=== PATIENT | female | born 1995 | race Caucasian/White ===

== ENCOUNTER 2019-08-09 14:34 | Emergency (ER) | payer BC, SELFPAY ==
--- NOTE | 2019-08-09 14:42 | ED.GENADULT ---
HPI - General Adult General Chief complaint: Skin/Abscess/Foreign Body Stated complaint: INFECTED AREA Time Seen by Provider: 08/09/19 14:43 Source: patient Mode of arrival: ambulatory Limitations: no limitations History of Present Illness HPI narrative: A 23 y/o female, who is a nonsmoker/nondrinker, presents to with c/o a rash on her buttocks since (2 days ago). Pt states that she noticed a tran on the area yesterday which popped on its own. Pt noted yellow drainage. She reports pain around the area that she rates as a 3/10 in severity. Pt notes that she had similar symptoms in the past from a hot tub. Pt was started on Macrobid on (2 days ago) for a UTI. Onset (ago): day(s) (2) Location: buttocks Related Data Home Medications Medication Instructions Recorded Confirmed levonorgestrel-ethinyl estrad 1 tablet PO DAILY 08/09/19 08/09/19 [Lessina] nitrofurantoin monohyd/m-cryst 100 mg PO DAILY 08/09/19 08/09/19 Allergies Allergy/AdvReac Type Severity Reaction Status Date / Time No Known Allergies Allergy Unverified 08/09/19 14:43 Review of Systems Review of Systems: Narrative: General/Constitutional: Denies: weight loss,fever Eyes: Denies: Redness,discharge Ears/Nose/Throat: Denies: Epistaxis,ear discharge Respiratory: Denies: Hemoptysis Gastrointestinal: Denies: Vomiting, Bleeding-rectal Skin: Reports: rash on buttocks with pain, yellow drainage Neurologic: Denies: Focal Weakness,Sz Hematologic: Denies: Petechiae/Purpura Psychiatric: Denies: Suicidal ideation All systems reviewed & are unremarkable except as noted in HPI and below PMFSH Family History Family History Other Diabetes mellitus Family history of pancreatic cancer Family history of type 2 diabetes mellitus Social History Social History Smoking status: Never smoker Alcohol intake: current Comments No significant PMHx. PCP. Dr. Rene At time of signature, agree with nursing past medical, surgical, social and family history. There is no relevant family history pertinent to the presenting complaint Exam Narrative: Exam Narrative: General Appearance: Well-nourished, Cooperative Head: Normocephalic Eye: PERRLA, Conjunctiva clear Ear: External ear normal Nose: Normal nose, Nare clear Mouth/Throat: Normal appearing Neck Exam: Supple Respiratory: Airway patent, No respiratory distress Musculoskeletal: Moves all extremities, Non tender; scattered follicular changes on thighs bilaterally Skin: Warm, Dry (small, isolated macular papular skin eruption of right gluteal Neurological: A&O x3 Psychiatric: Normal mood, Normal affect Course Vital Signs Vital signs: Vital Signs Temperature 98.1 F 08/09/19 14:44 Pulse Rate 101 H 08/09/19 14:44 Respiratory Rate 18 08/09/19 14:44 Blood Pressure 133/80 08/09/19 14:44 Pulse Oximetry 100 08/09/19 14:44 Temperature 98.1 F 08/09/19 14:44 Pulse Rate 101 H 08/09/19 14:44 Respiratory Rate 18 08/09/19 14:44 Blood Pressure 133/80 08/09/19 14:44 Pulse Oximetry 100 08/09/19 14:44 Medical Decision Making Vital Signs Vital Signs: Vital Signs Temperature 98.1 F 08/09/19 14:44 Pulse Rate 101 H 08/09/19 14:44 Respiratory Rate 18 08/09/19 14:44 Blood Pressure 133/80 08/09/19 14:44 Pulse Oximetry 100 08/09/19 14:44 Temperature 98.1 F 08/09/19 14:44 Pulse Rate 101 H 08/09/19 14:44 Respiratory Rate 18 08/09/19 14:44 Blood Pressure 133/80 08/09/19 14:44 Pulse Oximetry 100 08/09/19 14:44 Discharge Plan Discharge Clinical Impression: Folliculitis Patient Disposition: Home, Self-Care Condition: Stable Instructions: Antibiotic Form, Folliculitis (ED) Prescriptions: New clindamycin HCl 300 mg capsule 300 mg PO Q6H Qty: 15 RF: 0 mupirocin 2 % ointment 1 applic TOPICAL TI
[2019-08-09 14:44] VITALS: BP 133/80; PULSE 101; RESP 18; TEMP 36.7; O2SAT 100
== END 2019-08-09 15:01 | disposition home or self-care (01) ==
PROVIDERS: Emergency Provider Emergency Medicine
DX: L73.9 Follicular disorder, unspecified (principal)
CPT/HCPCS: 99213; G0463

== ENCOUNTER 2019-09-26 16:55 | Emergency (ER) | payer BC, MEDICAID, SELFPAY ==
[2019-09-26 17:00] VITALS: BP 127/75; PULSE 94; RESP 16; TEMP 37.1; O2SAT 99
--- NOTE | 2019-09-26 17:00 | ED.GENADULT ---
HPI - General Adult General Chief complaint: Upper Respiratory Infection Stated complaint: sore throat Time Seen by Provider: 09/26/19 17:00 Source: patient Mode of arrival: ambulatory Limitations: no limitations History of Present Illness HPI narrative: 23-year-old female patient presents to the [facility] with complaints of sore throat, enlarged tonsils and a rash. Patient states that her sore throat started approximately a week ago and states that the rash just started yesterday. Denies any itchiness to the rash. Denies any fevers that she is aware of. Denies any chest pain or shortness of breath or coughing. Patient states that her whole household did have strep that about a month ago. Patient denies any abdominal pain, nausea, vomiting or diarrhea. Patient denies any or breast-feeding at this time. Related Data Home Medications Medication Instructions Recorded Confirmed levonorgestrel-ethinyl estrad 1 tablet PO DAILY 08/09/19 09/26/19 [Lessina] Allergies Allergy/AdvReac Type Severity Reaction Status Date / Time No Known Allergies Allergy Verified 09/26/19 17:05 Review of Systems Review of Systems: Narrative: CONSTITUTIONAL: Denies fever, chills, or sweats. EYES: Denies visual changes, redness, or discharge. ENT: Denies rhinorrhea, congestion, positive sore throat, or otalgia. CARDIOVASCULAR: Denies chest pain, palpitations, or edema. RESPIRATORY: Denies cough or dyspnea. GASTROINTESTINAL: Denies abdominal pain, nausea, vomiting, or diarrhea. GENITOURINARY: Denies dysuria or hematuria. SKIN: Positive rash, denies itching. MUSCULOSKELETAL: Denies back pain, joint pain, or myalgia. NEUROLOGIC: Denies headache, numbness, or weakness. PSYCHIATRIC: Denies anxiety or depression. [facility] Family History Family History Other Diabetes mellitus Family history of pancreatic cancer Family history of type 2 diabetes mellitus Social History Social History Smoking status: Never smoker Alcohol intake: current Comments At the time of my signature I agree with nursing past medical history, surgical, social, and family history. There is no relevant family history pertinent to the presenting complaint. Exam Narrative: Exam Narrative: GENERAL: Well-appearing, well-nourished, and in no acute distress. HEAD: Normocephalic, atraumatic. EYES: PERRLA and EOMI. ENT: Nares clear, no rhinorrhea or epistaxis. Mucous membranes moist. Posterior pharynx with erythema and 2+ tonsil enlargement on the left side. No exudates or lesions present. Bilateral TMs are clear with no erythema or foreign bodies in the canal. NECK: Supple. No lymphadenopathy CHEST: Clear to auscultation. No respiratory distress. HEART: Regular rate and rhythm. No murmur heard. Normal peripheral pulses. ABDOMEN: Soft, nontender, nondistended, normal active bowel sounds. EXTREMITIES: Normal range of motion. No edema. SKIN: Warm, dry, patient has generalized flat pinpoint rash noted noted to chest, trunk and bilateral upper extremities. NEURO: No focal deficits. Alert and oriented x3. Course Vital Signs Vital signs: Vital Signs Temperature 37.1 C 09/26/19 17:00 Pulse Rate 94 09/26/19 17:00 Respiratory Rate 16 09/26/19 17:00 Blood Pressure 127/75 09/26/19 17:00 Pulse Oximetry 99 09/26/19 17:00 Temperature 37.1 C 09/26/19 17:00 Pulse Rate 94 09/26/19 17:00 Respiratory Rate 16 09/26/19 17:00 Blood Pressure 127/75 09/26/19 17:00 Pulse Oximetry 99 09/26/19 17:00 Vital signs reviewed Medical Decision Making Differential Diagnosis Differential Diagnosis: Differential diagnosis: Viral pharyngitis, pharyngitis, group A strep, infectious mononucleosis, gonococcal pharyngitis, exudative pharyngitis, oral candidiasis. Chronic allergies, postnasal drip, GERD, abscess formation, but glottitis, retrophary
== END 2019-09-26 17:34 | disposition home or self-care (01) ==
PROVIDERS: Emergency Provider Nurse Practitioner Family
DX: R21 Rash and other nonspecific skin eruption (principal); J02.9 Acute pharyngitis, unspecified
CPT/HCPCS: 86308; 87081; 87880; 99213; G0463

== ENCOUNTER 2019-10-04 19:34 | Emergency (ER) | payer BC, MEDICAID, SELFPAY ==
[2019-10-04 19:48] VITALS: BP 148/68; PULSE 105; RESP 16; TEMP 37.1; O2SAT 100
--- NOTE | 2019-10-04 20:07 | ED.FEMALEGU ---
HPI - Female Genitourinary General Chief complaint: Urogenital-Female Stated complaint: uti symptoms, bloody urine Time Seen by Provider: 10/04/19 19:57 Source: patient Mode of arrival: ambulatory Limitations: no limitations History of Present Illness HPI Narrative: This is a 23 year old female that presents to the ER for dysuria x 3 days. Reports urgency and frequency as well. Also reports hematuria. Reports recent unprotected sex. Denies fever, abdominal pain, vomiting, or flank pain. Related Data Home Medications Medication Instructions Recorded Confirmed levonorgestrel-ethinyl estrad 1 tablet PO DAILY 08/09/19 10/04/19 [Lessina] Allergies Allergy/AdvReac Type Severity Reaction Status Date / Time No Known Allergies Allergy Verified 10/04/19 19:50 Review of Systems Review of Systems: Narrative: CONSTITUTIONAL: Denies fever GASTROINTESTINAL: Denies abdominal pain, nausea, vomiting GENITOURINARY: Reports dysuria and hematuria. MUSCULOSKELETAL: Denies back pain All systems reviewed & are unremarkable except as noted in HPI and below PMFSH Social History Social History Smoking status: Never smoker Alcohol intake: current Gender identity (if verbalized by the patient): Female Exam Narrative: Exam Narrative: GENERAL: Well-appearing, well-nourished, and in no acute distress. HEAD: Normocephalic, atraumatic. EYES: EOMI. CHEST: Clear to auscultation. No respiratory distress. No wheezes rales or rhonchi HEART: Regular rate and rhythm. No murmur heard. Normal peripheral pulses. ABDOMEN: Soft, nontender, nondistended, normal active bowel sounds. No CVA tenderness EXTREMITIES: Normal range of motion. No edema. SKIN: Warm, dry, no rash. NEURO: No focal deficits. Alert and oriented x3. PSYCH: Normal mood and affect Course Vital Signs Vital signs: Vital Signs Temperature 98.8 F 10/04/19 19:48 Pulse Rate 105 H 10/04/19 19:48 Respiratory Rate 16 10/04/19 19:48 Blood Pressure 148/68 H 10/04/19 19:48 Pulse Oximetry 100 10/04/19 19:48 Temperature 98.8 F 10/04/19 19:48 Pulse Rate 105 H 10/04/19 19:48 Respiratory Rate 16 10/04/19 19:48 Blood Pressure 148/68 H 10/04/19 19:48 Pulse Oximetry 100 10/04/19 19:48 MDM - Female Genitourinary MDM Narrative Medical decision making narrative: Patient presents to the ER for dysuria x 3 days. She is afebrile and nontoxic appearing. Denies abdominal pain or flank pain. UA with evidence of urinary tract infection. Trichomonas negative. Chlamydia and Gonorrhea sent. Will follow up for results. Would not like to be presumptively treated. Patient will be started on antibiotics. 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 Patient was given warnings to return to the ER Lab Data Labs: Lab Results 10/04/19 10/04/19 10/04/19 Range/Units 20:50 20:56 20:57 Urine Color Red H (Yellow) Urine Appearance Cloudy H (Clear) Urine pH 7.0 (5.0-9.0) Ur Specific [place] 1.003 (1.001-1.035) Urine Protein 1+ H (Negative) mg/dL Urine Glucose (UA) Negative (Negative) mg/dL Urine Ketones Negative (Negative) mg/dL Ur Blood (Man) 3+ H (Negative) Urine Nitrate Negative (Negative) Urine Bilirubin Negative (Negative) Urine Urobilinogen Negative (<2.0) mg/dL Leukocyte Esterase Rfl 3+ H (Negative) MARANDA/UL Urine RBC 11-20 H (0-2) /hpf Urine WBC >75 H /hpf Ur Squamous Epith Cells Rare (Few) /hpf Urine Bacteria 1+ H /hpf Urine Mucus Rare /lpf C.trachomatis RNA (TMA) Pending N.gonorrhoeae RNA (TMA) Pending Trichomonas Direct ID Negative (Negative) UCG Bedside Result Negative Reference Range: Negative Critical Care Time Critical Care Time Critical Care Time: No Discharge Plan Discharge Clinical Impression: Urinary tract infection Qualifiers: Urinary tract infection type: acute cy
[2019-10-04 21:11] LABS: Add Urine Microscopic? YES; Appearance Urine Cloudy (Clear); Bacteria Urine 1+ /hpf; Bilirubin Urine Negative (Negative); Blood Urine 3+ (Negative); Color Urine Red (Yellow); Glucose Urine UA Negative (Negative); Ketones Urine Negative (Negative); Leukocyte Esterase Ur 3+ LEU/UL (Negative); Mucus Urine Rare /lpf; Nitrate Urine Negative (Negative); Protein Urine 1+ mg/dL (Negative); Specific Grav Ur 1.003 (1.001-1.035); Squamous Epithelial Cell Urine Rare /hpf (Few); Urobilinogen Urine Negative mg/dL (<2.0); WBC Urine >75 /hpf
== END 2019-10-04 23:00 | disposition home or self-care (01) ==
PROVIDERS: Physician Assistant; Emergency Provider Emergency Medicine
DX: N30.01 Acute cystitis with hematuria (principal)
CPT/HCPCS: 81001; 81025; 87070; 87086; 87088; 87491; 87591; 87808; 99284

== ENCOUNTER 2020-01-21 14:13 | Emergency (ER) | payer OTHER, SELFPAY ==
[2020-01-21 14:19] VITALS: BP 111/69; PULSE 95; RESP 12; TEMP 36.6; O2SAT 100
--- NOTE | 2020-01-21 14:19 | ED.SKABFB ---
HPI - Skin/Abscess/Foreign Bdy General Chief complaint: Skin/Abscess/Foreign Body Stated complaint: HIVES Time Seen by Provider: 01/21/20 14:21 Source: patient and RN notes reviewed Mode of arrival: ambulatory Limitations: no limitations History of Present Illness HPI narrative: 24 year old female who presents to [facility] care with complaints of hives to the anterior aspects of bilateral legs for the past 2 days. Patient states that she also has a few spots of hives also on the forearms. Patient states that she was outside over the weekend for a picnic and on grass, and she also completed antibiotic of Macrobid on Sunday morning but has taken that several times in past for UTI. Patient denies any new lotions, soaps, foods or any exposure to poisonous plants. She denies any difficulty with her swallowing or any trouble with breathing. MD complaint: rash Onset (ago): day(s) (2) Tetanus up to date: yes Location: LLE and RLE Severity: moderate Quality: pruritic Relieving factors: medication Exacerbating factors: movement Context: recent antibiotic and other (outside) Associated symptoms: itching Treatments prior to arrival: Benadryl Related Data Home Medications Medication Instructions Recorded Confirmed levonorgestrel-ethinyl estrad 1 tablet PO DAILY 08/09/19 01/21/20 [Lessina] Allergies Allergy/AdvReac Type Severity Reaction Status Date / Time No Known Allergies Allergy Verified 01/21/20 14:23 Review of Systems Review of Systems: Narrative: CONSTITUTIONAL: Denies fever, chills, or sweats. EYES: Denies visual changes, redness, or discharge. ENT: Denies rhinorrhea, congestion, sore throat, or otalgia. CARDIOVASCULAR: Denies chest pain, palpitations, or edema. RESPIRATORY: Denies cough or dyspnea. GASTROINTESTINAL: Denies abdominal pain, nausea, vomiting, or diarrhea. GENITOURINARY: Denies dysuria or hematuria. itching. MUSCULOSKELETAL: Denies back pain, joint pain, or myalgia. SKIN: hive rash to anterior thighs and forearms with itching. NEUROLOGIC: Denies headache, numbness, or weakness. PSYCHIATRIC: Denies anxiety or depression. All systems reviewed & are unremarkable except as noted in HPI and below PMFSH Past Medical History Medical History (Updated 01/21/20 @ 15:10 by Maria Ines Lr NP) UTI (urinary tract infection) Surgical History Surgical History (Updated 01/21/20 @ 15:11 by Maria Ines Lr NP) History of breast augmentation Family History Family History Other Diabetes mellitus Family history of pancreatic cancer Family history of type 2 diabetes mellitus Social History Social History Smoking status: Never smoker Alcohol intake: current Gender identity (if verbalized by the patient): Female Comments At time of signature, agree with nursing past medical, surgical, social and family history. There is no relevant family history pertinent to the presenting complaint Exam Narrative: Exam Narrative: GENERAL: Well-appearing, well-nourished, and in no acute distress. HEAD: Normocephalic, atraumatic. EYES: PERRLA and EOMI. ENT: Nares clear, no rhinorrhea or epistaxis. Mucous membranes moist. no difficulty with swallowing NECK: Supple.lymphadenopathy CHEST: Clear to auscultation. No respiratory distress.SAO2 100% on room air HEART: Regular rate and rhythm. No murmur heard. Normal peripheral pulses. ABDOMEN: Soft, non tender, non distended, normal active bowel sounds. EXTREMITIES: Normal range of motion. No edema. SKIN: Warm, dry, raised hives on anterior aspect of bilateral legs and on forearms with itching NEURO: No focal deficits. Alert and oriented x3. MDM - Skin/Abscess/Foreign Bdy Differential Diagnosis Differential diagnosis: Likely abscess of skin or subcutaneous tissue, urticaria, contact dermatitis and other (pruritic rash) Medical Records Attestation: I reviewed
== END 2020-01-21 14:46 | disposition home or self-care (01) ==
PROVIDERS: Emergency Provider Registered Nurse; PCP Family Medicine
DX: L50.9 Urticaria, unspecified (principal)
CPT/HCPCS: 99213; G0463

== ENCOUNTER 2020-01-27 13:04 | Outpatient (CLI) | payer OTHER, SELFPAY ==
--- NOTE | ~2020-01-27 | US_ITS ---
EXAMINATION: US carotid duplex BI EXAM DATE: 01/27/2020 13:34 INDICATION: Carotid bruit. TECHNIQUE: Grayscale, color and pulsed Doppler images of the cervical carotid arteries were obtained . The degree of vessel stenosis is placed in one of the following categories: normal, <50% stenosis, 50-69% stenosis, >=70% stenosis but less than near-occlusion, near-occlusion, or occlusion. Note that percent stenosis relative to normal distal artery lumen diameter is indirectly measured from velocit y measurements as described by Flynn, et al. Radiology 2003; 229:340-346. There is no prior study fo r comparison. FINDINGS: RIGHT SIDE: Right common carotid artery peak systolic velocity (PSV in cm/s): 103 Right bulb/internal carotid artery peak systolic velocity (PSV in cm/s): 65 Right internal carotid artery end diastolic velocity (EDV in cm/s): 21 Right ICA/CCA peak systolic ratio: 0.6 Right external carotid artery peak systolic velocity (PSV in cm/s): 94 Right vertebral artery antegrade flow: yes There is no focal plaque identified. LEFT SIDE: Left common carotid artery peak systolic velocity (PSV in cm/s): 92 Left bulb/internal carotid artery peak systolic velocity (PSV in cm/s): 57 Left internal carotid artery end diastolic velocity (EDV in cm/s): 28 Left ICA/CCA peak systolic ratio: 0.6 Left external carotid artery peak systolic velocity (PSV in cm/s): 68 Left vertebral artery antegrade flow: yes There is no focal plaque identified. IMPRESSION: 1. Normal right internal carotid artery. 2. Normal left internal carotid artery. Reviewed, dictated and finalized at location A.
== END 2020-01-27 13:05 | disposition home or self-care (01) ==
PROVIDERS: PCP Family Medicine; Visit Provider Family Medicine
DX: R09.89 Other specified symptoms and signs involving the circulatory and respiratory systems (principal)
CPT/HCPCS: 93880